=== PATIENT | male | born 1980 | race Caucasian/White ===

== ENCOUNTER 2019-01-04 18:39 | Emergency (ER) | payer MEDICAID ==
[~2019-01-04] VITALS: Ht 180.3 cm; Wt 99.8 kg
--- NOTE | 2019-01-04 19:00 | NUR ---
ED Nurse Note: Pt came in due to hemorrhoid and noticed yesterday. Denies bleeding. Referred by Dr Forbes.Pt is AO x 4times, VSS, on room air no distress. ERMD seen Pt at bedside.
--- NOTE | 2019-01-04 19:27 | Emergency Room Report ---
History of Present Illness General Chief Complaint: Pain Source: Patient Present Illness HPI Disclaimer: Please note that this report is being documented using DRAGON technology. This can lead to erroneous entry secondary to incorrect interpretation by the dictating instrument. HPI: 38-year-old otherwise healthy male presents for evaluation of hemorrhoid. Patient states he noticed bright red bleeding per rectum while having a bowel movement 2 days ago. He notes worsening pain, difficulty sitting and intermittent bleeding over the past couple days. He denies any abdominal pain, recent constipation, recent diarrhea, dysuria or any other changes in his health. He does not take stool softeners and typically does not have problem with constipation. No prior history of hemorrhoids. He was seen in urgent care and determined to have a thrombosed hemorrhoid. He was sent to the emergency department for incision and resection. He denies any recent fevers, chills, chest pain, shortness of breath, URI symptoms or other skin breakdown or lesions. PMH: Denies PSH: Denies Allergies: Denies Social Hx: Social alcohol use, denies drug or tobacco use Allergies: Coded Allergies: No Known Allergies (Unverified , 01/04/19) Nursing Documentation-PMH Past Medical History: No Stated History Review of Systems All Other Systems: negative except mentioned in HPI Physical Exam Vital Signs Date Time Temp Pulse Resp B/P (MAP) Pulse Ox O2 Delivery O2 Flow Rate FiO2 01/04/19 18:50 97.9 69 19 117/63 (81) 97 Room Air General: Awake and alert, no acute distress HEENT: NC/AT. EOMI. Resp: Normal work of breathing. Abdomen: Abdomen is soft, nondistended. Nontender Rectal: There is a 0.5 x 1 cm raised tender thrombosed external hemorrhoid at the 9 o'clock position. There is an ulcerative area with exposed thrombus. No active bleeding. No surrounding erythema or edema. No drainage. MSK: Normal tone and bulk. Moving all extremities. No obvious deformity. Neuro: Awake and alert. Mentating appropriately. Procedures Incision and Drainage Incision and Drainage : Consent: Verbal I & D Procedure: betadine prep Wound Location: other - Rectum Wound's Depth, Shape: superficial Anesthesia: 1% Lidocaine Volume Anesthetic (ccs): 5 Patient Tolerated: Well Complications: None Progress Incision and drainage of a thrombosed external hemorrhoid at the 9 o'clock position. Area was sterilized with Betadine prep. Approximately 5 cc 1% lidocaine was used for local anesthesia. A semilunar incision was made through the ulcerated portion on the medial edge that was showing exposed thrombosed clot. Incision was approximately 5 mm in length. Clot was expelled. Mild bleeding, approximately 20 cc and pressure dressing was applied. Area was irrigated. No complications. Patient tolerated the procedure well. Medical Decision Making Diagnostic Impression: Primary Impression: Thrombosed external hemorrhoid ER Course 38-year-old male presents for evaluation of thrombosed external hemorrhoid. Will perform incision and drainage to remove the clot. Patient can be discharged home with stool softeners, sitz baths, analgesia and follow-up with clinic and gastroenterology as needed. Will be started on antibiotics as well. Reevaluation Time: 20:09 Last Vital Signs Date Time Temp Pulse Resp B/P (MAP) Pulse Ox O2 Delivery O2 Flow Rate FiO2 01/04/19 18:50 97.9 69 19 117/63 (81) 97 Room Air Status: improved Reevaluation Impression Incision and drainage performed at bedside. The patient tolerated the procedure well. He will be discharged home on mupirocin cream, docusate, NSAIDs , sitz bath. Referred to clinics in the area taking new patients so he can follow-up with a physician in the next week. Discussed reasons to return to the emergency department. He understands and agrees to treatment plan. Disposition: HOME, SELF-CARE Condition: Improved Scripts Mupirocin* (MUPIROCIN*) 22 Gm Oint...g. 1 APPLIC TOPIC THREE TIMES A DAY for 7 Days, GM Prov: José Miguel Weiner MD 01/04/19 Ibuprofen* (MOTRIN*) 600 Mg Tablet 600 MG ORAL THREE TIMES A DAY, #30 TAB 0 Refills Prov: José Miguel Weiner MD 01/04/19 Docusate Sodium* (DOCUSATE SODIUM*) 100 Mg Capsule 100 MG ORAL TWICE A DAY for 10 Days, #20 CAP Prov: José Miguel Weiner MD 01/04/19 [sitz bath] No Conflict Check #1 Prov: José Miguel Weiner MD 01/04/19 Acetaminophen* (ACETAMINOPHEN 325MG TABLET*) 325 Mg Tablet 650 MG ORAL Q6H PRN for For Pain, #40 TAB Prov: José Miguel Weiner MD 01/04/19 Referrals: RACHEL MACHUCA MD (PCP) José Miguel Weiner MD Jan 04, 2019 19:27
[2019-01-04] MEDS ORDERED: Lidocaine 1% Plain 30 ml INJ ONE (19:30)
[2019-01-04 19:40] VITALS: BP 118/70
[2019-01-04] MEDS ORDERED: IBUPROFEN600 MG ORAL (20:04)
[2019-01-04] MEDS ORDERED: sitz bath (20:04)
[2019-01-04] MEDS ORDERED: ACETAMINOPHEN325 M1 ORAL (20:04)
[2019-01-04] MEDS ORDERED: DOCUSATE SODIU100 MG ORAL (20:04)
[2019-01-04] MEDS ORDERED: MUPIROCIN22 GM TOPIC (20:14)
[2019-01-04] MEDS ORDERED: HYDROcodone/Acetamin 5/325 tab ORAL ONE (20:30)
[2019-01-04 20:40] VITALS: BP 114/86
--- NOTE | 2019-01-04 20:40 | NUR ---
ED Nurse Note: pt cleared to be d/c per eRMd, pt discharge and aftercare instruction provided w/ prescription, pt education done via discussion and handout, pt advised to follow up with pcp or return to ed if changes in condition, vss, ambulatory w/steady gait, left w/ all belongings.
== END 2019-01-04 21:40 | disposition home or self-care (01) ==
LOC: EMR 19:09
DX: K64.5 Perianal venous thrombosis (principal)
CPT/HCPCS: 46083; 99283; J2001; Z7502